=== PATIENT | female | born 1980 | race Two or more races ===

== ENCOUNTER 2016-07-18 05:40 | Emergency (ER) | payer MEDICAID ==
[~2016-07-18] VITALS: Ht 157.5 cm; Wt 68.9 kg
[~2016-07-18 05:40] MED LIST: NKM
[2016-07-18] MEDS ORDERED: AZITHROMYCIN250 MG ORAL (06:00)
--- NOTE | 2016-07-18 06:02 | Emergency Room Report ---
History of Present Illness General Chief Complaint: Sore Throat Source: Patient Present Illness HPI This is a 36-year-old female with no significant past medical history. She present with chief complaint of sore throat. Onset yesterday. Worse today. Worse with swallowing. She felt tonsil little swollen. No fever or chills. No nausea no vomiting. No viral URI symptoms. Daughter was sick with strep throat 3 weeks ago. Allergies: Coded Allergies: No Known Allergies (Unverified , 12/12/13) Patient History Past Medical History: see triage record, old chart reviewed Past Surgical History: none Pertinent Family History: none Social History: Denies: smoking Last Menstrual Period: Jul Now: No Immunizations: other Reviewed Nursing Documentation: PMH: Agreed, PSxH: Agreed Nursing Documentation-PMH Past Medical History: No Stated History Review of Systems Eye: Denies: blurred vision, eye pain ENT: Reports: throat pain, Denies: ear pain, nose congestion, throat swelling Respiratory: Denies: cough, shortness of breath Cardiovascular: Denies: chest pain, palpitations Gastrointestinal: Denies: abdominal pain, diarrhea, nausea, vomiting Musculoskeletal: Denies: back pain, joint pain Skin: Denies: rash Neurological: Denies: headache, numbness Endocrine: Denies: increased thirst, increased urine Hematologic/Lymphatic: Denies: easy bruising All Other Systems: negative except mentioned in HPI Physical Exam Vital Signs Date Time Temp Pulse Resp B/P Pulse Ox O2 Delivery O2 Flow Rate FiO2 07/18/16 05:43 98.2 78 16 101/73 97 Room Air vitals normal Sp02 EP Interpretation: reviewed, normal General Appearance: well appearing, no apparent distress, alert Head: normocephalic, atraumatic Eyes: bilateral eye EOMI, bilateral eye PERRL ENT: hearing grossly normal, other - Right tonsil mildly erythematous. No exudate. No trismus. No adenopathy. Neck: full range of motion, supple, no meningismus Respiratory: chest non-tender, lungs clear, normal breath sounds Cardiovascular #1: regular rate, rhythm, no murmur Gastrointestinal: normal bowel sounds, non tender, no mass, no organomegaly, no bruit, non-distended Musculoskeletal: back normal, gait/station normal, normal range of motion Psychiatric: mood/affect normal Skin: warm/dry Medical Decision Making Diagnostic Impression: Primary Impression: Sore throat ER Course Patient presents with a pharyngitis. Doubt strep. She looks well otherwise. No evidence of peritonsillar abscess, retropharyngeal abscess, Camron angina or epiglotitis. We'll discharge home. He'll going right for antibiotics prescription. Told patient to hold off for several days. Symptomatic treatment for now. If she starts spiking a fever or increasing pain without signs of cough, congestion, cold, go ahead and fill the antibiotic prescription. Last Vital Signs Date Time Temp Pulse Resp B/P Pulse Ox O2 Delivery O2 Flow Rate FiO2 07/18/16 05:43 98.2 78 16 101/73 97 Room Air Status: improved Disposition: HOME, SELF-CARE Condition: Stable Scripts Azithromycin* (ZITHROMAX*) 250 Mg Tablet 250 MG ORAL DAILY, #6 TAB 0 Refills Take two tablets by mouth today, then take one tablet by mouth daily for four days Prov: TRISTA JULIAN M.D. 07/18/16 Additional Instructions: Followup your Dr. in 7 days. Symptomatic treatment with ibuprofen, salt water gargle, or other nlrd-pcl-nwrnsac medication. Fill prescription for antibiotics if you're having fever, increasing pain, and lack of cough, congestion, runny nose or other viral symptoms. Return if worse. TRISTA JULIAN M.D. Jul 18, 2016 06:01
[2016-07-18 06:06] VITALS: BP 101/73
== END 2016-07-18 06:06 | disposition home or self-care (01) ==
LOC: EMR 05:55
DX: R07.0 Pain in throat (principal)
CPT/HCPCS: 99283